=== PATIENT | female | born 1950 | race Caucasian/White ===

== ENCOUNTER 2018-07-08 21:52 | Inpatient (IN) | payer MEDICARE ==
[2018-07-08] MEDS ORDERED: Nitroglycerin 2% Ointment 1 INCH/1 GM Packet ONE (22:40)
[2018-07-08 22:43] LABS: #Basophils 0.1 thou/uL (0.0-0.2); #Eosinphils 0.3 thou/uL (0.0-0.7); #Lymphocytes 1.9 thou/uL (1.20-3.40); #Monocytes 0.7 thou/uL (0.11-0.59); #Neutrophils 5.4 thou/uL (1.40-6.50); %Basophils 1.1 % (0.0-1.0); %Eosinophils 3.5 % (0.0-10.0); %Lymphocytes 22.4 % (21.0-51.0); %Monocytes 8.4 % (0.0-10.0); %Neutrophils 64.6 % (42.0-75.0); Hemoglobin 13.3 g/dL (12.0-16.0); Mean Corpuscular HGB CONC 34.1 g/dL (32.0-36.0); Mean Corpuscular Volume 82.3 fL (78.0-98.0); Mean Platelet Volume 9.6 fL (7.4-10.4); Platelet Count 218 thou/uL (130-400); RBC Distribution Width 11.9 % (11.5-14.5); Red Blood Cell (RBC) Count 4.76 mill/uL (4.20-5.40); White Blood Cell (WBC) Count 8.3 thou/uL (4.8-10.8)
--- NOTE | 2018-07-08 22:53 | RAD ---
AP VIEW OF THE CHEST: 07/08/18 INDICATION: Chest pain. IMPRESSION: No acute cardiopulmonary abnormality. COMMENTS: There is postsurgical change of prior CABG. No consolidation, pleural effusion, or pneumothorax is ev ident. No acute osseous abnormality is evident. POS: [facility]
[2018-07-08 22:57] LABS: CKMB 1.6 ng/mL (0-6.6); Troponin I Less than 0.010 ng/mL (< 0.028)
[2018-07-08 23:01] LABS: ALT (SGPT) 16 U/L (8-55); AST (SGOT) 17 U/L (5-34); Albumin 4.2 g/dL (3.4-4.8); Alkaline Phosphatase 91 U/L (40-150); Anion Gap 14 mmol/L (10-20); BUN (Urea Nitrogen) 16 mg/dL (9.8-20.1); Bilirubin, Total 0.2 mg/dL (0.2-1.2); Calc. Creatinine Clearance 0 mL/min (70-130); Calcium 9.7 mg/dL (7.8-10.44); Carbon Dioxide 24 mmol/L (23-31); Chloride 107 mmol/L (98-107); Estimated GFR-MDRD 75; Globulin 3.3 g/dL (2.4-3.5); Glucose 192 mg/dL (80-115); Lipase 56 U/L (8-78); Potassium 3.8 mmol/L (3.5-5.1); Protein, Total 7.5 g/dL (6.0-8.3); Sodium 141 mmol/L (136-145)
[2018-07-09] MEDS ORDERED: Acetaminophen 325 MG TAB PO PRN (01:29)
[2018-07-09] MEDS ORDERED: Ondansetron HCl/PF 4 MG/2 ML Vial IVP PRN (01:29)
[2018-07-09] MEDS ORDERED: Ibuprofen 200 MG TAB PO PRN (01:32)
[2018-07-09] MEDS: hydrALAZINE 20 MG/ML VIAL SLOW IVP PRN (01:35)
[2018-07-09 01:52] LABS: Troponin I Less than 0.010 ng/mL (< 0.028)
[2018-07-09 04:40] LABS: Anion Gap 11 mmol/L (10-20); BUN (Urea Nitrogen) 14 mg/dL (9.8-20.1); Calc. Creatinine Clearance 136 mL/min (70-130); Calcium 9.2 mg/dL (7.8-10.44); Carbon Dioxide 22 mmol/L (23-31); Chloride 108 mmol/L (98-107); Estimated GFR-MDRD 81; Glucose 122 mg/dL (80-115); Sodium 137 mmol/L (136-145)
[2018-07-09 04:42] LABS: #Eosinphils 0.3 thou/uL (0.0-0.7); #Lymphocytes 2.1 thou/uL (1.20-3.40); #Monocytes 0.8 thou/uL (0.11-0.59); #Neutrophils 5.5 thou/uL (1.40-6.50); %Basophils 0.2 % (0.0-1.0); %Eosinophils 3.7 % (0.0-10.0); %Lymphocytes 23.7 % (21.0-51.0); %Monocytes 9.4 % (0.0-10.0); %Neutrophils 63.1 % (42.0-75.0); Hemoglobin 12.6 g/dL (12.0-16.0); Mean Corpuscular HGB CONC 34.3 g/dL (32.0-36.0); Mean Corpuscular Hemoglobin 29.9 pg (27.0-31.0); Mean Corpuscular Volume 87.2 fL (78.0-98.0); Mean Platelet Volume 8.8 fL (7.4-10.4); Platelet Count 219 thou/uL (130-400); RBC Distribution Width 12.7 % (11.5-14.5); White Blood Cell (WBC) Count 8.8 thou/uL (4.8-10.8)
[2018-07-09] MEDS: Nitroglycerin 2% Ointment 1 INCH/1 GM Packet TOP SCH ×2 (06:52→12:39)
[2018-07-09] MEDS: Levothyroxine 150 MCG TAB PO SCH (07:13)
--- NOTE | 2018-07-09 07:33 | HP ---
PRIMARY CARE DOCTOR FOR THIS PATIENT: Out of town doctor. CODE STATUS: FULL CODE. TIME OF EVALUATION: 11:30 a.m. CHIEF COMPLAINT: Chest pain. HISTORY OF PRESENT ILLNESS: This is a 68-year-old female patient with past medical history of hypert ension. 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 When she go t into the ER with the medication, the pain was on for about 1 hour, was severe and also associated w ith nausea. REVIEW OF SYSTEMS: Constitutional: No fever, chills, or generalized weakness. Respiratory: No cou gh, sputum production, or shortness of breath. Cardiovascular: The patient had chest pain as mentio ace in the HPI. No palpitations or shortness of breath. Gastrointestinal: The patient had nausea a nd vomiting. No diarrhea or abdominal pain. [employer]: No dizziness, headache, or feeling lightheaded. Genitourinary: No burning with urination. Extremities: No leg swelling. All other systems were re viewed and negative except for the findings mentioned above. PAST MEDICAL HISTORY: Mentioned in the HPI. PAST SURGICAL HISTORY: Heart surgery when she was younger, surgery due to bowel obstruction, cholecy stectomy, hysterectomy. PSYCHIATRIC HISTORY: Anxiety and depression. SOCIAL HISTORY: No alcohol, no drug use, no smoking history. FAMILY HISTORY: Mother with heart problems, hypertension. Father in a motor vehicle accident. ALLERGIES: IODINE, MORPHINE and SHELLFISH-CONTAINING PRODUCTS. REPORTED MEDICATIONS: Levothyroxine and lisinopril. PHYSICAL EXAMINATION: VITAL SIGNS: On presentation, blood pressure 198/92, heart rate 70, respiratory rate was 17, oxygen saturation was 98. GENERAL APPEARANCE: Patient was alert, oriented, not in acute distress. HEENT: Eyes, normal conjunctivae. Moist oral mucosa. Anicteric. NECK: No JVD. RESPIRATORY: Bilateral air entry. No rales, no wheezing. Symmetric expansion. CARDIOVASCULAR: The patient is hypertensive with normal rate, regular rhythm. No murmurs, no gallop , no edema. ABDOMEN: Soft. Normal bowel sounds. MUSCULOSKELETAL: Baseline range of motion and strength. No tenderness. SKIN: Warm and intact. No pallor, no rash, no redness. Peripheral pulses are present. Capillary r efill seems to be intact. NEUROLOGIC: Baseline sensorium. No evidence of any new focal weakness. Baseline speech. Cranial n erve seems to be intact. PSYCHIATRIC: The patient is in good mood. No anxiety, oriented, optimal judgment. The EKG was reviewed by myself. The patient has normal sinus rhythm with a rate of 77 with VA 172, Q RS 84, QT corrected 441. The patient has some T-wave inversion, but only one lead. No evidence of a ny acute ischemic events. Chest x-ray showed there are postsurgical changes of prior CABG. No conso lidation, pleural effusion, or pneumothorax is evident. No acute osseous abnormalities are evident. LABORATORY DATA: The labs were reviewed. White count 8.3, hemoglobin 13.3, MCV 82, platelet count 2 18. Chemistry: Sodium 141, potassium 3.8, chloride 107, carbon dioxide 24, anion gap 14, BUN 16, cr eatinine 0.7, GFR 75, glucose 192, calcium 9.7, total bilirubin 0.2, AST 17, ALT 16, alkaline phospha tase 91. Troponin was negative. Serum total protein 7.5, albumin 4.2, globulin 3.3, albumin globuli n ratio 1.3. Lipase 56. ASSESSMENT AND PLAN: The patient will be placed in the hospital with the following medical problems. 1. Hypertensive urgency. Systolic blood pressure was 96, likely secondary to acute distress due to the argument that patient had at home and they also said patient had run out of medication. She is n ot from [facility], so she did not tell anybody that she had no medications. Patient will need prescriptio n prior to discharge. 2. Hyperglycemia. No history of diabetes. Blood glucose 192, could be related to acute physical di stress, also due to glucose intolerance, we will monitor, we will treat accordingly. 3. Chest pain, rule out acute coronary syndrome. The patient has typical chest pain as described in the HPI, troponin is negative, EKG is nondiagnostic for acute coronary syndrome, will trend troponin s, monitor on tele, patient is agreeable to go for a stress test in the morning. Risks and benefits have been discussed including developing chest pain, irregular heartbeat, acute AR during stress test . She understood verbalized Cardiology for assistance. 4. Deep venous thrombosis prophylaxis. 5. Obesity, advised to loss weights.
[2018-07-09] MEDS ORDERED: Aspirin 325 MG TAB PO SCH (08:00)
[2018-07-09] MEDS: Lisinopril 20 MG TAB PO SCH (09:00)
[2018-07-09] MEDS ORDERED: Prevnar 13-Val Conj/PF 0.5 ML SYRINGE IM ONE (09:00)
[2018-07-09] MEDS: Enoxaparin Sodium 40 MG/0.4 ML SYRINGE SC SCH (09:00)
[2018-07-10] MEDS: Levothyroxine 150 MCG TAB PO SCH (05:49)
[2018-07-10] MEDS: Lisinopril 20 MG TAB PO SCH ×2 (09:52→20:17)
[2018-07-10] MEDS: Enoxaparin Sodium 40 MG/0.4 ML SYRINGE SC SCH (09:52)
--- NOTE | 2018-07-10 10:27 | NM ---
MYOCARDIAL PERFUSION SCAN WITH SPECT IMAGING: HISTORY: Chest pain. Examination was performed using 29 mCi 99m Technetium sestamibi on the stress and 28.7 mCi on the res ting images. This shows a small apical defect not significantly changed between the stress and redis tribution images. WALL MOTION: There is a suggestion of some possible minimal hypokinesis of the apex of the heart. LEFT VENTRICULAR EJECTION FRACTION: The calculated left ventricular ejection fraction was 61%. IMPRESSION: Suggestion of a small area of apical scar with some questionable slight apical hypokinesis. No defin ite ischemic change. POS: [facility]
[2018-07-10] MEDS ORDERED: Communication Order-Pharmacy FS SCH (11:45)
[2018-07-10] MEDS ORDERED: Aspirin 81 mg Enteric Coated Tablet PO SCH (11:45)
[2018-07-10] MEDS: hydrALAZINE 20 MG/ML VIAL SLOW IVP PRN (11:47)
[2018-07-10 12:03] LABS: Hemoglobin A1c 6.5 % (4.0-6.0)
[2018-07-10] MEDS: predniSONE 20 MG TAB PO SCH ×3 (12:45→20:17)
[2018-07-10] MEDS: diphenhydrAMINE 25 MG CAP PO SCH ×3 (12:45→20:17)
[2018-07-10] MEDS: Famotidine 20 MG TAB PO SCH ×3 (12:45→20:17)
[2018-07-11] MEDS: predniSONE 20 MG TAB PO SCH (04:24)
[2018-07-11] MEDS: Famotidine 20 MG TAB PO SCH (04:24)
[2018-07-11] MEDS: Levothyroxine 150 MCG TAB PO SCH (04:24)
[2018-07-11] MEDS: Lisinopril 20 MG TAB PO SCH ×2 (04:24→20:29)
[2018-07-11] MEDS: diphenhydrAMINE 25 MG CAP PO SCH (04:25)
--- NOTE | 2018-07-11 06:14 | PDOC.PN ---
- Subjective Encounter Start Date: 07/10/18 Encounter Start Time: 10:30 Subjective: pt up in bed no complains - Objective Resuscitation Status: Resuscitation Status FULL:Full Resuscitation Vital Signs & Weight: Vital Signs (12 hours) Temp Pulse Resp BP BP BP BP 07/11/18 04:24 182/74 H 07/11/18 04:22 97.8 F 91 18 182/74 H 07/11/18 00:34 07/10/18 23:42 98.5 F 93 16 155/69 H 07/10/18 20:17 98.3 F 96 14 166/91 H 07/10/18 20:16 87 166/91 H 07/10/18 18:36 98.3 F 96 20 134/80 Pulse Ox 07/11/18 04:24 07/11/18 04:22 96 07/11/18 00:34 98 07/10/18 23:42 95 07/10/18 20:17 07/10/18 20:16 07/10/18 18:36 95 Weight Weight 241 lb 9.6 oz I&O: 07/09/18 07/10/18 07/11/18 06:59 06:59 06:59 Intake Total 0 600 1281 Balance 0 600 1281 Result Diagrams: 07/09/18 04:09 07/09/18 04:09 Phys Exam - Physical Examination Neck: no nodes, no JVD, supple, full ROM Respiratory: no wheezing, no rales, no rhonchi, wheezing present, clear to auscultation bilateral Cardiovascular: RRR, no significant murmur, no rub, gallop, irregular Dx/Plan (1) Chest pain Code(s): R07.9 - CHEST PAIN, UNSPECIFIED Status: Acute (2) Hypertensive urgency Code(s): I16.0 - HYPERTENSIVE URGENCY Status: Acute (3) Abnormal stress test Status: Acute - Plan pt has no more chest pain -: will increase her SANDY -: pt has not taken bp meds for 1.5 weeks -: will consult cardiology for abnormal stress test * . Review of Systems - Review of Systems Respiratory: negative: Cough, Dry, Shortness of Breath, Hemoptysis, SOB with Excertion, Pleuritic Pain, Sputum, Wheezing Cardiovascular: negative: chest pain, palpitations, orthopnea, paroxysmal nocturnal dyspnea, edema, light headedness, other Gastrointestinal: negative: Nausea, Vomiting, Abdominal Pain, Diarrhea, Constipation, Melena, Hematochezia, Other Genitourinary: negative: Dysuria, Frequency, Incontinence, Hematuria, Retention , Other - Medications/Allergies Allergies/Adverse Reactions: Allergies Allergy/AdvReac Type Severity Reaction Status Date / Time Iodinated Contrast- Oral and Allergy Verified 07/09/18 01:19 IV Dye morphine Allergy Verified 07/09/18 01:19 shellfish derived Allergy Verified 07/09/18 01:19 Medications: Current Medications Acetaminophen (Tylenol) 650 mg PO Q4H PRN PRN Reason: Headache/Fever or Pain Aspirin (Ecotrin) 81 mg PO DAILY [facility] Last Admin: 07/11/18 04:24 Dose: 81 mg Diphenhydramine HCl (Benadryl) 25 mg PO 0600,1230,1600,1999 [facility] Stop: 07/11/18 08:00 Last Admin: 07/11/18 04:25 Dose: 25 mg Famotidine (Pepcid) 20 mg PO 0600,1230,1599,1999 [facility] Stop: 07/11/18 08:00 Last Admin: 07/11/18 04:24 Dose: 20 mg Hydralazine HCl (Apresoline) 10 mg SLOW IVP Q4H PRN PRN Reason: FOR SBP > 170 Last Admin: 07/10/18 11:47 Dose: 10 mg Levothyroxine Sodium (Synthroid) 150 mcg PO 0600 [facility] Last Admin: 07/11/18 04:24 Dose: 150 mcg Lisinopril (Zestril) 20 mg PO BID [facility] Last Admin: 07/11/18 04:24 Dose: 20 mg Ondansetron HCl (Zofran) 4 mg IVP Q6H PRN PRN Reason: Nausea/Vomiting Prednisone (Prednisone) 20 mg PO 0600,1230,1600,1999 [facility] Stop: 07/11/18 08:00 Last Admin: 07/11/18 04:24 Dose: 20 mg Sodium Chloride (Flush - Normal Saline) 10 ml IVF PRN PRN PRN Reason: Saline Flush Last Admin: 07/10/18 20:17 Dose: 10 ml
[2018-07-11] MEDS ORDERED: Lidocaine 1% (PF) 30 ML VIAL ONE (06:56)
[2018-07-11] MEDS ORDERED: Iopamidol 370 76% 100 ML VIAL ONE (07:38)
[2018-07-11] MEDS ORDERED: Iopamidol 370 76% 50 ML VIAL FS ONE (07:38)
[2018-07-11] MEDS ORDERED: Midazolam HCl 2 mg/2 ml Vial ONE (08:00)
[2018-07-11] MEDS ORDERED: Fentanyl 100 MCG/2 ML VIAL ONE (08:00)
[2018-07-11] MEDS ORDERED: Metoprolol Tartrate 5 MG/5 ML VIAL ONE ×2 (08:43→08:49)
[2018-07-11] MEDS ORDERED: Bivalirudin 250 MG VIAL ONE ×2 (08:45→09:50)
[2018-07-11] MEDS ORDERED: Nitroglycerin 100MG/250ML BOT 250 ML ONE (08:49)
[2018-07-11] MEDS ORDERED: Clopidogrel Bisulfate 300 MG TAB ONE (08:49)
[2018-07-11] MEDS ORDERED: Aspirin 81 mg Enteric Coated Tablet PO SCH (09:00)
[2018-07-11] MEDS ORDERED: Nitroglycerin 0.4 MG TAB (25 Tab Bottle) SL PRN (09:59)
[2018-07-11] MEDS ORDERED: Sodium Chloride 0.9% 1,000 ML IV SCH (10:00)
[2018-07-11] MEDS ORDERED: hydrALAZINE 20 MG/ML VIAL ONE (10:04)
[2018-07-11] MEDS ORDERED: Clopidogrel Bisulfate 300 MG TAB PO SCH (11:00)
[2018-07-11] MEDS: Amlodipine 10 MG TAB PO SCH (13:55)
--- NOTE | 2018-07-11 15:25 | CON ---
DATE OF CONSULTATION: 07/10/2018 HISTORY OF PRESENT ILLNESS: The patient is a 68-year-old woman with a history of ASD repair who presented with chest discomfort. The patient has a previous history of an ASD repair, The patient was in her usual state of health when she developed acute onset of midsternal chest discomfort. This radiated to her back. The patient became short of breath. She also noted discomfort in her chest. The patient received nitroglycerin with resolution of her chest discomfort. The patient denies having any present chest discomfort. PAST MEDICAL HISTORY: 1. ASD repair. 2. Hypertension. 3. Thyroid disorder. PAST SURGICAL HISTORY: Cholecystectomy, hysterectomy, abdominal surgery for a bowel obstruction. SOCIAL HISTORY: Nonsmoker. FAMILY HISTORY: Positive family history of coronary artery disease. ALLERGIES: MORPHINE, and IODINE. MEDICATIONS ON ADMISSION: Included lisinopril 20 daily, Synthroid 150 mcg daily. REVIEW OF SYSTEMS: Ten-point system otherwise unremarkable. PHYSICAL EXAMINATION: GENERAL: This is an obese woman, in no acute distress. VITAL SIGNS: Blood pressure of 144/64. NECK: Showed no jugular venous distention. LUNGS: Clear to auscultation. HEART: Regular rate and rhythm, normal S1, S2, no murmurs. ABDOMEN: Distended. EXTREMITIES: Showed trace edema. LABORATORY DATA: White blood cell count 8.8, hemoglobin 12.6, hematocrit 36.6 and platelets are 219. Sodium 137, potassium 4.0, chloride 108, bicarbonate 22 , BUN 14, creatinine 0.72. Troponin 0.02. Her Cardiolite stress test revealed her to have normal left ventricular ejection fraction 61% with a small area of apical scar and apical hypokinesis. IMAGING: Her EKG revealed normal sinus rhythm with a normal ECG. IMPRESSION: 1. Chest pain. 2. History of atrial septal defect repair. 3. Hypertension. 4. Obesity. This patient presents with chest pain with some features suggestive of angina. Her pressure was markedly elevated. Her stress test revealed a possible scar of the apex. I discussed the options with the patient on medical therapy versus invasive evaluation. The patient strongly prefers to have a definitive diagnosis. I explained the risks involved with cardiac catheterization including CA, bleeding, stroke, cardiac arrhythmias, and cardiac , risks involved in stent placement and restenosis. Patient understands all these risks and wishes to proceed. PLAN: Proceed with cardiac catheterization. ELIDA
--- NOTE | 2018-07-11 16:37 | PDOC.PN ---
- Subjective Encounter Start Date: 07/11/18 Encounter Start Time: 10:30 Subjective: pt up in bed no complains - Objective Resuscitation Status: Resuscitation Status FULL:Full Resuscitation Vital Signs & Weight: Vital Signs (12 hours) Temp Pulse Resp BP BP Pulse Ox 07/11/18 13:20 97.1 F L 79 18 177/75 H 99 07/11/18 07:40 97.8 F 91 18 07/11/18 07:08 97.9 F 93 22 H 168/74 H 95 Weight Weight 241 lb 9.6 oz I&O: 07/10/18 07/11/18 07/12/18 06:59 06:59 06:59 Intake Total 600 1281 Balance 600 1281 Result Diagrams: 07/09/18 04:09 07/09/18 04:09 Phys Exam - Physical Examination Neck: no nodes, no JVD, supple, full ROM Respiratory: no wheezing, no rales, no rhonchi, wheezing present, clear to auscultation bilateral Cardiovascular: RRR, no significant murmur, no rub, gallop, irregular Gastrointestinal: soft, non-tender, no distention, positive bowel sounds Musculoskeletal: no edema, pulses present, edema present Dx/Plan (1) Chest pain Code(s): R07.9 - CHEST PAIN, UNSPECIFIED Status: Acute (2) Hypertensive urgency Code(s): I16.0 - HYPERTENSIVE URGENCY Status: Acute (3) Abnormal stress test Status: Acute - Plan pt underwent cardiac cath due to her anatomy no intervention only -: medical managment -: pt's hbg alc is 6.5 she will need metformin -: cardiology wants to keep her overnight and discharge in am * . Review of Systems - Review of Systems ENT: negative: Ear Pain, Ear Discharge, Nose Pain, Nose Discharge, Nose Congestion, Mouth Pain, Mouth Swelling, Throat Pain, Throat Swelling, Other Respiratory: negative: Cough, Dry, Shortness of Breath, Hemoptysis, SOB with Excertion, Pleuritic Pain, Sputum, Wheezing Cardiovascular: negative: chest pain, palpitations, orthopnea, paroxysmal nocturnal dyspnea, edema, light headedness, other - Medications/Allergies Allergies/Adverse Reactions: Allergies Allergy/AdvReac Type Severity Reaction Status Date / Time Iodinated Contrast- Oral and Allergy Verified 07/09/18 01:19 IV Dye morphine Allergy Verified 07/09/18 01:19 shellfish derived Allergy Verified 07/09/18 01:19 Medications: Current Medications Acetaminophen (Tylenol) 650 mg PO Q4H PRN PRN Reason: Headache/Fever or Pain Amlodipine Besylate (Norvasc) 10 mg PO DAILY [facility] Last Admin: 07/11/18 13:55 Dose: 10 mg Aspirin (Aspirin Chewable) 81 mg PO DAILY [facility] Clopidogrel Bisulfate (Plavix) 75 mg PO DAILY [facility] Hydralazine HCl (Apresoline) 10 mg SLOW IVP Q4H PRN PRN Reason: FOR SBP > 170 Last Admin: 07/10/18 11:47 Dose: 10 mg Isosorbide Mononitrate (Imdur Er) 30 mg PO DAILY [facility] Levothyroxine Sodium (Synthroid) 150 mcg PO 0600 [facility] Last Admin: 07/11/18 04:24 Dose: 150 mcg Lisinopril (Zestril) 20 mg PO BID [facility] Last Admin: 07/11/18 04:24 Dose: 20 mg Metoprolol Succinate (Toprol Xl) 50 mg PO DAILY [facility] Metoprolol Succinate (Toprol Xl) 50 mg PO NOW [facility] Stop: 07/11/18 17:00 Last Admin: 07/11/18 15:04 Dose: 50 mg Nitroglycerin (Nitrostat) 0.4 mg SL Q5MIN PRN PRN Reason: Chest Pain Ondansetron HCl (Zofran) 4 mg IVP Q6H PRN PRN Reason: Nausea/Vomiting Rosuvastatin Calcium (Crestor) 20 mg PO HS [facility] Sodium Chloride (Flush - Normal Saline) 10 ml IVF PRN PRN PRN Reason: Saline Flush Last Admin: 07/10/18 20:17 Dose: 10 ml
[2018-07-11] MEDS ORDERED: Rosuvastatin 20 MG TAB PO SCH (21:00)
[2018-07-12] MEDS: Levothyroxine 150 MCG TAB PO SCH (05:17)
[2018-07-12 06:41] LABS: #Eosinphils 0.2 thou/uL (0.0-0.7); #Lymphocytes 2.6 thou/uL (1.20-3.40); #Monocytes 0.8 thou/uL (0.11-0.59); #Neutrophils 7.7 thou/uL (1.40-6.50); %Basophils 0.2 % (0.0-1.0); %Eosinophils 1.6 % (0.0-10.0); %Lymphocytes 23.4 % (21.0-51.0); %Monocytes 6.6 % (0.0-10.0); %Neutrophils 68.1 % (42.0-75.0); Hemoglobin 12.1 g/dL (12.0-16.0); Mean Corpuscular HGB CONC 33.2 g/dL (32.0-36.0); Mean Corpuscular Hemoglobin 29.6 pg (27.0-31.0); Mean Corpuscular Volume 89.2 fL (78.0-98.0); Mean Platelet Volume 9.4 fL (7.4-10.4); Platelet Count 249 thou/uL (130-400); RBC Distribution Width 12.7 % (11.5-14.5); Red Blood Cell (RBC) Count 4.09 mill/uL (4.20-5.40); White Blood Cell (WBC) Count 11.3 thou/uL (4.8-10.8)
[2018-07-12 07:09] LABS: ALT (SGPT) 15 U/L (8-55); AST (SGOT) 13 U/L (5-34); Albumin 3.7 g/dL (3.4-4.8); Alkaline Phosphatase 66 U/L (40-150); Anion Gap 11 mmol/L (10-20); BUN (Urea Nitrogen) 18 mg/dL (9.8-20.1); Bilirubin, Total 0.3 mg/dL (0.2-1.2); Calc. Creatinine Clearance 132 mL/min (70-130); Calcium 9.3 mg/dL (7.8-10.44); Carbon Dioxide 23 mmol/L (23-31); Chloride 108 mmol/L (98-107); Estimated GFR-MDRD 81; Globulin 2.9 g/dL (2.4-3.5); Glucose 122 mg/dL (80-115); Potassium 3.7 mmol/L (3.5-5.1); Protein, Total 6.6 g/dL (6.0-8.3); Sodium 138 mmol/L (136-145)
--- NOTE | 2018-07-12 07:32 | EKG ---
Test Reason : POST CATH Blood Pressure : / mmHG Vent. Rate : 090 BPM Atrial Rate : 090 BPM P-R Int : 232 ms QRS Dur : 094 ms QT Int : 398 ms P-R-T Axes : 081 068 046 degrees QTc Int : 486 ms Sinus rhythm with 1st degree A-V block Nonspecific ST abnormalty When compared with ECG of 08-JUL-2018 23:22, (Unconfirmed) GA interval has increased Confirmed by DR. Armando PRICE ([id number]) on 07/12/2018 7:32:16 AM Referred By: LEONA Confirmed By:DR. Armando PRICE
[2018-07-12] MEDS: Lisinopril 20 MG TAB PO SCH (08:25)
[2018-07-12] MEDS: Amlodipine 10 MG TAB PO SCH (08:25)
[2018-07-12] MEDS ORDERED: Clopidogrel Bisulfate 75 MG TAB PO SCH (09:00)
[2018-07-12 09:33] VITALS: TEMP 98.1
--- NOTE | 2018-07-12 11:34 | DIS ---
DATE OF ADMISSION: 07/11/2018 DATE OF DISCHARGE: 07/12/2018 DISCHARGE DIAGNOSES: 1. Hypertensive urgency, resolved. 2. Coronary artery disease, chronic and stable medical management. 3. Hyperlipidemia. 4. Hyperglycemia. CONSULTATIONS: Dr. Becker with Cardiology Service. PERTINENT LABORATORY AND X-RAY FINDINGS: Basic metabolic profile within normal limits. Hemoglobin A 1c 6.5. Troponin I negative x3. LFTs within normal limits. CBC showed a white blood cell count ran ging between 8.3-11.3. Portable chest x-ray dated 07/08/2018 showed no acute cardiopulmonary process . Cardiolite stress test dated 07/09/2018 showed small area of apical scar with questionable slight apical hypokinesis. Ejection fraction estimated 61%. Left heart catheterization dated 07/11/2018 sh owed chronic LAD lesion with collateral flow from the distal right coronary artery to the mid LAD, es timated ejection fraction of 55%. HOSPITAL COURSE: The patient was admitted to the telemetry unit after presenting with chest pain wit h associated hypertensive urgency. The patient with noncompliance with outpatient antihypertensive r egimen with hypertensive urgency managed medically at the time of presentation. The patient had asso ciated chest pain with serial troponin I negative x3. Due to the patient's history of hypertension a s well as history of atrial septal defect repair as a child, the patient underwent a Cardiolite stres s testing showing questionable small apical scarring. Due to the patient's prior history and present ation, the patient underwent cardiac catheterization after evaluation by the Cardiology service. No specific intervention was recommended other than medical management and control of hypertension as we ll as risk factor modification. The patient was recommended for dual antiplatelet therapy with aspir in and Plavix as well as titration of her antihypertensive regimen. The patient was also noted with mild hyperglycemia with a mild elevated hemoglobin A1c. Current recommendations are for dietary dennis gement and weight loss as well as consistent exercise program. The patient may need additional surve illance and consideration for medical therapy at a future date. Overall, the patient did remain clin ically stable during the hospital course. I have examined the patient at the time of discharge and d iscussed followup recommendations. The patient verbalizes understanding and agreement and ready for discharge on 07/12/2018. DISCHARGE MEDICATIONS: 1. Norvasc 10 mg 1 tab p.o. daily. 2. Enteric-coated aspirin 81 mg 1 tab p.o. daily. 3. Plavix 75 mg 1 tab p.o. daily. 4. Imdur 30 mg 1 tab p.o. daily. 5. Synthroid 150 mcg p.o. daily. 6. Lisinopril 20 mg p.o. b.i.d. 7. Toprol XL 50 mg p.o. daily. 8. Crestor 20 mg p.o. at bedtime. FOLLOWUP: The patient may follow up with Dr. Angel Luis Becker with [facility] and to call his office for appointment time and date. The patient will also follow up with a local [facility] provider of choice to establish care. CONDITION ON DISCHARGE: Stable. ACTIVITY: Ad skyler. DIET: Heart healthy and ADA. CODE STATUS: Full. DISPOSITION: Home, 07/12/2018. Total time preparing and coordinating discharge is 32 minutes.
[2018-07-12 11:51] VITALS: BP 148/69
--- NOTE | 2018-07-12 16:29 | CCL ---
INDICATION: Subtotally occluded LAD. The patient remained in the cardiac laborer car barn. This was after diagnostic catheterization by Dr. Jakob dunn. A 5-Somali sheath in right femoral artery was exchanged over wire for a 6 6-Somali sheath. A 6-Frenc h Chloe left 4 was inserted. Angiomax bolus and drip were given as well as Plavix 600 mg. Multipl e floppy choice wires were used. Proximal LAD could never be cannulated. The left 4 guide was remov ed. Left 5 guide was inserted; however, this did not engage the left main. Left 4.5 guide was then inserted and again with floppy choice wire and then an extra support wire, the right angle takeoff of the LAD off the left main could never be cannulated. IMPRESSION: Unsuccessful PCI attempt of the subtotally occluded LAD due to inability to cannulate the 90 degree t akeoff of the LAD off of the left main.
--- NOTE | 2018-07-13 07:41 | EKG ---
Test Reason : Blood Pressure : / mmHG Vent. Rate : 062 BPM Atrial Rate : 062 BPM P-R Int : 204 ms QRS Dur : 092 ms QT Int : 412 ms P-R-T Axes : 058 055 015 degrees QTc Int : 418 ms Normal sinus rhythm Normal ECG Confirmed by DR. Armando PRICE ([id number]) on 07/13/2018 7:41:40 AM Referred By: LEONA Confirmed By:DR. Armando PRICE
== END 2018-07-12 13:28 | disposition home or self-care (01) | DRG 287 ==
LOC: SCSER 21:52 → 2SW 23:35 → OBSVTOIN 07-11 10:05 → 2NO 07-11 10:46
PROVIDERS: ADMIT Hospitalist; ATTEND Hospitalist
PROC: 4A023N7 Measurement of Cardiac Sampling and Pressure, Left Heart, Percutaneous Approach (ICD-10-PCS; principal; 2018-07-11)
PROC: B2111ZZ Fluoroscopy of Multiple Coronary Arteries using Low Osmolar Contrast (ICD-10-PCS; 2018-07-11)
PROC: B2151ZZ Fluoroscopy of Left Heart using Low Osmolar Contrast (ICD-10-PCS; 2018-07-11)
DX: I16.0 Hypertensive urgency (principal); Z68.42 Body mass index [BMI] 45.0-49.9, adult; I25.10 Atherosclerotic heart disease of native coronary artery without angina pectoris; I10 Essential (primary) hypertension; F41.9 Anxiety disorder, unspecified; F32.9 Major depressive disorder, single episode, unspecified; R73.9 Hyperglycemia, unspecified; E66.9 Obesity, unspecified; E78.5 Hyperlipidemia, unspecified; Z91.14 Patient's other noncompliance with medication regimen; Z88.5 Allergy status to narcotic agent; Z91.013 Allergy to seafood; Z82.49 Family history of ischemic heart disease and other diseases of the circulatory system
CPT/HCPCS: 36415; 71045; 78452; 80048; 80053; 82553; 83036; 83690; 84484; 85025; 85347; 90471; 90670; 93005; 93010; 93017; 93458; 94760; 99152; 99153; A9500; C1769; C1887; G0009; J0153; J0360; J0583; J1644; J1650; J2001; J2250; J3010; J7506